=== PATIENT | male | born 1985 | race Caucasian/White ===

== ENCOUNTER 2023-02-02 08:24 | Inpatient (IN) | payer MEDICARE, BC ==
[2023-02-02] MEDS ORDERED: Ondansetron 4 MG Tab.DIS PO PRN (13:27)
[2023-02-02] MEDS ORDERED: Acetaminophen 325 MG Tab PO PRN (13:27)
[2023-02-02] MEDS ORDERED: Meropenem 500 MG in Sodium Chloride 0.9% 100 ML IV SCH (13:45)
[2023-02-02] MEDS ORDERED: ESZOPICLONE 3 MG PO PRN (14:01)
[2023-02-02] MEDS ORDERED: LORazepam 0.5 MG Tab PO PRN (14:01)
[2023-02-02] MEDS ORDERED: Loperamide 2 MG Cap PO PRN (14:01)
[2023-02-02] MEDS: Meropenem 500 MG SDV IVPUSH SCH ×2 (15:05→21:00)
[2023-02-02] MEDS: Sodium Chloride 0.9% 10 ML Syringe IV PRN ×4 (15:10→21:05)
[2023-02-02] MEDS: Psyllium Husk Powder Sugar Free 5.85 GM Packet PO SCH ×2 (17:55→21:12)
[2023-02-02] MEDS: VANCOmycin 2 GM/400 ML 2 GM in Premix Bag 1 BAG IV SCH (17:57)
[2023-02-02] MEDS: Atropine/Diphenoxylate 0.025-2.5 MG Tab PO SCH ×2 (18:05→21:21)
[2023-02-02] MEDS: cloNIDine 0.1 MG Tab PO SCH (21:07)
[2023-02-02] MEDS: Cyclobenzaprine 10 MG Tab PO SCH (21:10)
[2023-02-02] MEDS: Tamsulosin 0.4 MG Cap.ER PO SCH (21:11)
[2023-02-02] MEDS: lamoTRIgine 100 MG Tab PO SCH (21:12)
[2023-02-02] MEDS: Topiramate 50 MG Tab PO SCH (21:13)
[2023-02-03] MEDS: VANCOmycin 2 GM/400 ML 2 GM in Premix Bag 1 BAG IV SCH ×2 (01:08→08:31)
[2023-02-03] MEDS: Sodium Chloride 0.9% 10 ML Syringe IV PRN ×3 (03:15→08:19)
[2023-02-03] MEDS: Meropenem 500 MG SDV IVPUSH SCH ×4 (03:15→21:11)
[2023-02-03] MEDS: Enoxaparin 40 MG/0.4 ML Syringe SUBCUT SCH (08:18)
[2023-02-03] MEDS: Venlafaxine 150 MG Cap.ER PO SCH (08:21)
[2023-02-03] MEDS: AMPHETAMINE PO SCH (08:21)
[2023-02-03] MEDS: DEXTROAMPHETAMINE PO SCH (08:21)
[2023-02-03] MEDS: Venlafaxine 37.5 MG Cap.ER PO SCH (08:23)
[2023-02-03] MEDS: Cyclobenzaprine 10 MG Tab PO SCH ×3 (08:23→21:14)
[2023-02-03] MEDS: Nicotine 21 MG/24 Hr Patch TOP SCH (08:24)
[2023-02-03] MEDS: amLODIPine 10 MG Tab PO SCH (08:24)
[2023-02-03] MEDS: cloNIDine 0.1 MG Tab PO SCH ×2 (08:25→21:15)
[2023-02-03] MEDS: Psyllium Husk Powder Sugar Free 5.85 GM Packet PO SCH ×4 (08:34→21:22)
[2023-02-03] MEDS: Atropine/Diphenoxylate 0.025-2.5 MG Tab PO SCH ×4 (08:40→21:37)
[2023-02-03] MEDS: Nicotine Polacrilex 2 MG Gum BUCCAL PRN ×2 (10:15→16:14)
[2023-02-03] MEDS: [UNRECOGNIZED DRUG - OTHER] PO SCH ×3 (13:47→21:23)
[2023-02-03] MEDS: VANCOmycin 1.5 GM/300 ML 300 ML IV SCH (17:39)
[2023-02-03] MEDS: lamoTRIgine 100 MG Tab PO SCH (21:20)
[2023-02-03] MEDS: Tamsulosin 0.4 MG Cap.ER PO SCH (21:20)
[2023-02-03] MEDS: Topiramate 50 MG Tab PO SCH (21:21)
[2023-02-04] MEDS: VANCOmycin 1.5 GM/300 ML 300 ML IV SCH ×3 (02:37→18:57)
[2023-02-04] MEDS: Sodium Chloride 0.9% 10 ML Syringe IV PRN ×7 (04:31→14:23)
[2023-02-04] MEDS: Meropenem 500 MG SDV IVPUSH SCH ×4 (04:32→20:11)
[2023-02-04] MEDS: Enoxaparin 40 MG/0.4 ML Syringe SUBCUT SCH (08:39)
[2023-02-04] MEDS: cloNIDine 0.1 MG Tab PO SCH ×2 (08:46→20:13)
[2023-02-04] MEDS: Venlafaxine 150 MG Cap.ER PO SCH (08:52)
[2023-02-04] MEDS: Cyclobenzaprine 10 MG Tab PO SCH ×3 (08:52→20:13)
[2023-02-04] MEDS: Venlafaxine 37.5 MG Cap.ER PO SCH (08:52)
[2023-02-04] MEDS: amLODIPine 10 MG Tab PO SCH (08:53)
[2023-02-04] MEDS: Nicotine 21 MG/24 Hr Patch TOP SCH (08:54)
[2023-02-04] MEDS: Psyllium Husk Powder Sugar Free 5.85 GM Packet PO SCH ×2 (08:54→13:26)
[2023-02-04] MEDS: DEXTROAMPHETAMINE PO SCH (09:00)
[2023-02-04] MEDS: AMPHETAMINE PO SCH (09:00)
[2023-02-04] MEDS: [UNRECOGNIZED DRUG - OTHER] PO SCH ×4 (09:03→20:12)
[2023-02-04] MEDS: Atropine/Diphenoxylate 0.025-2.5 MG Tab PO SCH ×4 (09:31→20:12)
[2023-02-04] MEDS: Nicotine Polacrilex 2 MG Gum BUCCAL PRN ×2 (10:11→20:12)
[2023-02-04] MEDS: PSYLLIUM PO SCH ×2 (17:16→20:11)
[2023-02-04] MEDS: Topiramate 50 MG Tab PO SCH (20:13)
[2023-02-04] MEDS: Tamsulosin 0.4 MG Cap.ER PO SCH (20:13)
[2023-02-04] MEDS: lamoTRIgine 100 MG Tab PO SCH (21:46)
[2023-02-05] MEDS: Melatonin 3 MG Tab PO PRN ×2 (00:26→20:12)
[2023-02-05] MEDS: VANCOmycin 1.5 GM/300 ML 300 ML IV SCH ×3 (01:00→18:07)
[2023-02-05] MEDS: Meropenem 500 MG SDV IVPUSH SCH ×4 (02:54→20:03)
[2023-02-05] MEDS: Enoxaparin 40 MG/0.4 ML Syringe SUBCUT SCH (08:52)
[2023-02-05] MEDS: cloNIDine 0.1 MG Tab PO SCH ×2 (08:55→20:12)
[2023-02-05] MEDS: DEXTROAMPHETAMINE PO SCH (08:55)
[2023-02-05] MEDS: AMPHETAMINE PO SCH (08:55)
[2023-02-05] MEDS: Venlafaxine 37.5 MG Cap.ER PO SCH (08:56)
[2023-02-05] MEDS: Cyclobenzaprine 10 MG Tab PO SCH ×3 (08:56→20:14)
[2023-02-05] MEDS: Venlafaxine 150 MG Cap.ER PO SCH (08:56)
[2023-02-05] MEDS: Nicotine 21 MG/24 Hr Patch TOP SCH (08:57)
[2023-02-05] MEDS: Atropine/Diphenoxylate 0.025-2.5 MG Tab PO SCH ×4 (08:58→19:49)
[2023-02-05] MEDS: amLODIPine 10 MG Tab PO SCH (08:58)
[2023-02-05] MEDS: PSYLLIUM PO SCH ×4 (08:58→20:11)
[2023-02-05] MEDS: [UNRECOGNIZED DRUG - OTHER] PO SCH ×4 (08:59→20:05)
[2023-02-05] MEDS: Nicotine Polacrilex 2 MG Gum BUCCAL PRN ×3 (08:59→20:05)
[2023-02-05 10:56] LABS: CREATININE 0.9 mg/dL (0.70-1.30); EST CRCL DRUG DOSING (CG) 124.54 mL/min
[2023-02-05] MEDS: Sodium Chloride 0.9% 10 ML Syringe IV PRN ×3 (15:37→20:05)
[2023-02-05] MEDS: Tamsulosin 0.4 MG Cap.ER PO SCH (20:12)
[2023-02-05] MEDS: lamoTRIgine 100 MG Tab PO SCH (20:13)
[2023-02-05] MEDS: Topiramate 50 MG Tab PO SCH (20:14)
[2023-02-06] MEDS: VANCOmycin 1.5 GM/300 ML 300 ML IV SCH ×3 (01:23→17:55)
[2023-02-06] MEDS: Meropenem 500 MG SDV IVPUSH SCH ×4 (03:33→20:03)
[2023-02-06] MEDS: Enoxaparin 40 MG/0.4 ML Syringe SUBCUT SCH (08:57)
[2023-02-06] MEDS: Sodium Chloride 0.9% 10 ML Syringe IV PRN ×8 (08:58→20:03)
[2023-02-06] MEDS: Nicotine 21 MG/24 Hr Patch TOP SCH (09:00)
[2023-02-06] MEDS: cloNIDine 0.1 MG Tab PO SCH ×2 (09:02→21:05)
[2023-02-06] MEDS: Venlafaxine 37.5 MG Cap.ER PO SCH (09:02)
[2023-02-06] MEDS: amLODIPine 10 MG Tab PO SCH (09:03)
[2023-02-06] MEDS: Venlafaxine 150 MG Cap.ER PO SCH (09:03)
[2023-02-06] MEDS: Cyclobenzaprine 10 MG Tab PO SCH ×3 (09:05→21:09)
[2023-02-06] MEDS: PSYLLIUM PO SCH ×4 (09:08→21:10)
[2023-02-06] MEDS: AMPHETAMINE PO SCH (09:11)
[2023-02-06] MEDS: DEXTROAMPHETAMINE PO SCH (09:11)
[2023-02-06] MEDS: [UNRECOGNIZED DRUG - OTHER] PO SCH ×4 (09:12→21:18)
[2023-02-06] MEDS: Atropine/Diphenoxylate 0.025-2.5 MG Tab PO SCH ×4 (09:33→21:27)
[2023-02-06] MEDS: Tamsulosin 0.4 MG Cap.ER PO SCH (21:10)
[2023-02-06] MEDS: lamoTRIgine 100 MG Tab PO SCH (21:10)
[2023-02-06] MEDS: Topiramate 50 MG Tab PO SCH (21:11)
[2023-02-06] MEDS: Nicotine Polacrilex 2 MG Gum BUCCAL PRN (21:26)
[2023-02-07] MEDS: Sodium Chloride 0.9% 10 ML Syringe IV PRN ×10 (02:24→20:47)
[2023-02-07] MEDS: VANCOmycin 1.5 GM/300 ML 300 ML IV SCH ×3 (02:25→17:34)
[2023-02-07] MEDS: Meropenem 500 MG SDV IVPUSH SCH ×4 (03:59→20:49)
[2023-02-07] MEDS: Enoxaparin 40 MG/0.4 ML Syringe SUBCUT SCH (09:02)
[2023-02-07] MEDS: PSYLLIUM PO SCH ×4 (09:03→20:45)
[2023-02-07] MEDS: Atropine/Diphenoxylate 0.025-2.5 MG Tab PO SCH ×4 (09:04→20:58)
[2023-02-07] MEDS: Cyclobenzaprine 10 MG Tab PO SCH ×3 (09:04→21:00)
[2023-02-07] MEDS: Venlafaxine 150 MG Cap.ER PO SCH (09:05)
[2023-02-07] MEDS: amLODIPine 10 MG Tab PO SCH (09:05)
[2023-02-07] MEDS: Venlafaxine 37.5 MG Cap.ER PO SCH (09:05)
[2023-02-07] MEDS: Nicotine 21 MG/24 Hr Patch TOP SCH (09:06)
[2023-02-07] MEDS: cloNIDine 0.1 MG Tab PO SCH ×2 (09:06→20:58)
[2023-02-07] MEDS: DEXTROAMPHETAMINE PO SCH (09:10)
[2023-02-07] MEDS: [UNRECOGNIZED DRUG - OTHER] PO SCH ×4 (09:10→21:03)
[2023-02-07] MEDS: AMPHETAMINE PO SCH (09:10)
[2023-02-07] MEDS: Nicotine Polacrilex 2 MG Gum BUCCAL PRN (10:22)
[2023-02-07] MEDS: Tamsulosin 0.4 MG Cap.ER PO SCH (21:01)
[2023-02-07] MEDS: lamoTRIgine 100 MG Tab PO SCH (21:01)
[2023-02-07] MEDS: Topiramate 50 MG Tab PO SCH (21:01)
[2023-02-08] MEDS: Sodium Chloride 0.9% 10 ML Syringe IV PRN ×10 (01:53→20:41)
[2023-02-08] MEDS: Meropenem 500 MG SDV IVPUSH SCH ×4 (01:54→20:42)
[2023-02-08] MEDS: VANCOmycin 1.5 GM/300 ML 300 ML IV SCH ×3 (02:13→18:02)
[2023-02-08] MEDS: Atropine/Diphenoxylate 0.025-2.5 MG Tab PO SCH ×4 (08:44→21:11)
[2023-02-08] MEDS: PSYLLIUM PO SCH ×4 (08:44→20:37)
[2023-02-08] MEDS: Enoxaparin 40 MG/0.4 ML Syringe SUBCUT SCH (08:44)
[2023-02-08] MEDS: Venlafaxine 37.5 MG Cap.ER PO SCH (08:45)
[2023-02-08] MEDS: Venlafaxine 150 MG Cap.ER PO SCH (08:46)
[2023-02-08] MEDS: Cyclobenzaprine 10 MG Tab PO SCH ×3 (08:47→21:00)
[2023-02-08] MEDS: Nicotine 21 MG/24 Hr Patch TOP SCH (08:48)
[2023-02-08] MEDS: DEXTROAMPHETAMINE PO SCH (08:55)
[2023-02-08] MEDS: AMPHETAMINE PO SCH (08:55)
[2023-02-08] MEDS: [UNRECOGNIZED DRUG - OTHER] PO SCH ×4 (08:55→20:41)
[2023-02-08] MEDS: cloNIDine 0.1 MG Tab PO SCH ×2 (09:04→21:05)
[2023-02-08] MEDS: amLODIPine 10 MG Tab PO SCH (09:05)
[2023-02-08] MEDS: Nicotine Polacrilex 2 MG Gum BUCCAL PRN (20:36)
[2023-02-08] MEDS: Topiramate 50 MG Tab PO SCH (21:06)
[2023-02-08] MEDS: lamoTRIgine 100 MG Tab PO SCH (21:06)
[2023-02-08] MEDS: Tamsulosin 0.4 MG Cap.ER PO SCH (21:06)
[2023-02-09] MEDS: Sodium Chloride 0.9% 10 ML Syringe IV PRN ×7 (01:45→19:57)
[2023-02-09] MEDS: Meropenem 500 MG SDV IVPUSH SCH ×4 (01:45→19:52)
[2023-02-09] MEDS: VANCOmycin 1.5 GM/300 ML 300 ML IV SCH ×3 (01:52→17:25)
[2023-02-09] MEDS: Enoxaparin 40 MG/0.4 ML Syringe SUBCUT SCH (09:01)
[2023-02-09] MEDS: AMPHETAMINE PO SCH (09:04)
[2023-02-09] MEDS: DEXTROAMPHETAMINE PO SCH (09:04)
[2023-02-09] MEDS: Venlafaxine 37.5 MG Cap.ER PO SCH (09:05)
[2023-02-09] MEDS: Venlafaxine 150 MG Cap.ER PO SCH (09:05)
[2023-02-09] MEDS: Cyclobenzaprine 10 MG Tab PO SCH ×3 (09:06→21:31)
[2023-02-09] MEDS: Nicotine 21 MG/24 Hr Patch TOP SCH (09:07)
[2023-02-09] MEDS: Atropine/Diphenoxylate 0.025-2.5 MG Tab PO SCH ×4 (09:08→21:39)
[2023-02-09] MEDS: [UNRECOGNIZED DRUG - OTHER] PO SCH ×4 (09:09→21:40)
[2023-02-09] MEDS: PSYLLIUM PO SCH ×4 (09:10→21:31)
[2023-02-09] MEDS: cloNIDine 0.1 MG Tab PO SCH ×2 (09:11→21:34)
[2023-02-09] MEDS: amLODIPine 10 MG Tab PO SCH (09:12)
[2023-02-09 09:42] LABS: BASOPHILS PERCENT AUTO 0.8 % (0.3-3.8); EOSINOPHILS ABSOLUTE AUTO 0.2 x10-3/uL (0.0-0.6); EOSINOPHILS PERCENT AUTO 2.9 % (0.1-6.8); HEMOGLOBIN 12.5 g/dL (12.9-17.7); LYMPHOCYTES PERCENT AUTO 35.6 % (15.8-45.3); MEAN CORPUSCULAR HEMOGLOBIN 27.3 pg (27.0-33.3); MEAN CORPUSCULAR VOLUME 82.8 fL (80.8-98.7); MEAN PLATELET VOLUME 6.8 fL (6.7-11.0); MONOCYTES ABSOLUTE AUTO 0.4 x10-3/uL (0.0-1.2); MONOCYTES PERCENT AUTO 7.7 % (5.5-15.2); NEUTROPHILS ABSOLUTE AUTO 2.9 x10-3/uL (1.7-6.9); PLATELET COUNT,PLT 459 x10(3)uL (117-477); RED BLOOD CELL COUNT 4.59 x10(6)uL (3.90-5.90); RED CELL DISTRIBUTION WIDTH 14.5 % (12.4-15.0); WHITE BLOOD CELL COUNT,WBC 5.5 x10-3/uL (3.2-10.1)
[2023-02-09 09:50] LABS: CREATININE 0.7 mg/dL (0.70-1.30); EST CRCL DRUG DOSING (CG) 160.13 mL/min
[2023-02-09] MEDS: Topiramate 50 MG Tab PO SCH (21:30)
[2023-02-09] MEDS: lamoTRIgine 100 MG Tab PO SCH (21:30)
[2023-02-09] MEDS: Tamsulosin 0.4 MG Cap.ER PO SCH (21:31)
[2023-02-10] MEDS: Meropenem 500 MG SDV IVPUSH SCH ×4 (01:55→20:16)
[2023-02-10] MEDS: Sodium Chloride 0.9% 10 ML Syringe IV PRN ×9 (02:00→20:22)
[2023-02-10] MEDS: VANCOmycin 1.5 GM/300 ML 300 ML IV SCH ×3 (02:04→18:32)
[2023-02-10] MEDS: Enoxaparin 40 MG/0.4 ML Syringe SUBCUT SCH (08:33)
[2023-02-10] MEDS: AMPHETAMINE PO SCH (08:35)
[2023-02-10] MEDS: DEXTROAMPHETAMINE PO SCH (08:35)
[2023-02-10] MEDS: [UNRECOGNIZED DRUG - OTHER] PO SCH ×4 (08:37→21:18)
[2023-02-10] MEDS: cloNIDine 0.1 MG Tab PO SCH ×2 (08:40→21:14)
[2023-02-10] MEDS: amLODIPine 10 MG Tab PO SCH (08:40)
[2023-02-10] MEDS: Venlafaxine 150 MG Cap.ER PO SCH (08:41)
[2023-02-10] MEDS: Cyclobenzaprine 10 MG Tab PO SCH ×3 (08:43→21:14)
[2023-02-10] MEDS: Venlafaxine 37.5 MG Cap.ER PO SCH (08:44)
[2023-02-10] MEDS: Nicotine 21 MG/24 Hr Patch TOP SCH (08:45)
[2023-02-10] MEDS: PSYLLIUM PO SCH ×4 (08:48→21:15)
[2023-02-10] MEDS: Atropine/Diphenoxylate 0.025-2.5 MG Tab PO SCH ×4 (09:05→21:15)
[2023-02-10] MEDS: Topiramate 50 MG Tab PO SCH (21:15)
[2023-02-10] MEDS: Tamsulosin 0.4 MG Cap.ER PO SCH (21:15)
[2023-02-10] MEDS: lamoTRIgine 100 MG Tab PO SCH (21:15)
[2023-02-11] MEDS: Meropenem 500 MG SDV IVPUSH SCH ×4 (01:57→20:00)
[2023-02-11] MEDS: Sodium Chloride 0.9% 10 ML Syringe IV PRN ×8 (02:05→20:05)
[2023-02-11] MEDS: VANCOmycin 1.5 GM/300 ML 300 ML IV SCH ×3 (02:10→18:10)
[2023-02-11] MEDS: Enoxaparin 40 MG/0.4 ML Syringe SUBCUT SCH (09:20)
[2023-02-11] MEDS: DEXTROAMPHETAMINE PO SCH (09:28)
[2023-02-11] MEDS: Nicotine 21 MG/24 Hr Patch TOP SCH (09:28)
[2023-02-11] MEDS: AMPHETAMINE PO SCH (09:28)
[2023-02-11] MEDS: amLODIPine 10 MG Tab PO SCH (09:30)
[2023-02-11] MEDS: cloNIDine 0.1 MG Tab PO SCH ×2 (09:30→21:16)
[2023-02-11] MEDS: PSYLLIUM PO SCH ×4 (09:31→21:16)
[2023-02-11] MEDS: [UNRECOGNIZED DRUG - OTHER] PO SCH ×4 (09:32→21:16)
[2023-02-11] MEDS: Venlafaxine 37.5 MG Cap.ER PO SCH (09:33)
[2023-02-11] MEDS: Venlafaxine 150 MG Cap.ER PO SCH (09:33)
[2023-02-11] MEDS: Cyclobenzaprine 10 MG Tab PO SCH ×3 (09:34→21:15)
[2023-02-11] MEDS: Atropine/Diphenoxylate 0.025-2.5 MG Tab PO SCH ×4 (09:39→21:15)
[2023-02-11] MEDS: Topiramate 50 MG Tab PO SCH (21:15)
[2023-02-11] MEDS: lamoTRIgine 100 MG Tab PO SCH (21:15)
[2023-02-11] MEDS: Tamsulosin 0.4 MG Cap.ER PO SCH (21:15)
[2023-02-12] MEDS: Meropenem 500 MG SDV IVPUSH SCH ×4 (01:59→20:34)
[2023-02-12] MEDS: Sodium Chloride 0.9% 10 ML Syringe IV PRN ×9 (02:04→20:54)
[2023-02-12] MEDS: VANCOmycin 1.5 GM/300 ML 300 ML IV SCH ×3 (02:05→17:18)
[2023-02-12] MEDS: Enoxaparin 40 MG/0.4 ML Syringe SUBCUT SCH (09:24)
[2023-02-12] MEDS: PSYLLIUM PO SCH ×4 (09:26→20:42)
[2023-02-12] MEDS: [UNRECOGNIZED DRUG - OTHER] PO SCH ×4 (09:28→20:42)
[2023-02-12] MEDS ORDERED: Iopamidol 755 Mg/ML 100 ML Bottle IV ONE (09:30)
[2023-02-12] MEDS: AMPHETAMINE PO SCH (09:33)
[2023-02-12] MEDS: Atropine/Diphenoxylate 0.025-2.5 MG Tab PO SCH ×4 (09:33→20:42)
[2023-02-12] MEDS: DEXTROAMPHETAMINE PO SCH (09:33)
[2023-02-12] MEDS: Venlafaxine 37.5 MG Cap.ER PO SCH (09:34)
[2023-02-12] MEDS: Venlafaxine 150 MG Cap.ER PO SCH (09:34)
[2023-02-12] MEDS: Cyclobenzaprine 10 MG Tab PO SCH ×3 (09:35→20:35)
[2023-02-12] MEDS: Nicotine 21 MG/24 Hr Patch TOP SCH (09:39)
[2023-02-12] MEDS: cloNIDine 0.1 MG Tab PO SCH ×2 (09:50→20:34)
[2023-02-12] MEDS: amLODIPine 10 MG Tab PO SCH (09:50)
[2023-02-12] MEDS: lamoTRIgine 100 MG Tab PO SCH (20:35)
[2023-02-12] MEDS: Tamsulosin 0.4 MG Cap.ER PO SCH (20:35)
[2023-02-12] MEDS: Topiramate 50 MG Tab PO SCH (20:36)
[2023-02-13] MEDS: VANCOmycin 1.5 GM/300 ML 300 ML IV SCH ×3 (01:06→17:08)
[2023-02-13] MEDS: Sodium Chloride 0.9% 10 ML Syringe IV PRN ×11 (01:06→20:53)
[2023-02-13] MEDS: Meropenem 500 MG SDV IVPUSH SCH ×4 (02:45→20:48)
[2023-02-13] MEDS: AMPHETAMINE PO SCH (09:38)
[2023-02-13] MEDS: DEXTROAMPHETAMINE PO SCH (09:38)
[2023-02-13] MEDS: Enoxaparin 40 MG/0.4 ML Syringe SUBCUT SCH (09:49)
[2023-02-13] MEDS: Atropine/Diphenoxylate 0.025-2.5 MG Tab PO SCH ×4 (10:00→20:50)
[2023-02-13] MEDS: Cyclobenzaprine 10 MG Tab PO SCH ×3 (10:09→20:48)
[2023-02-13] MEDS: cloNIDine 0.1 MG Tab PO SCH ×2 (10:10→20:49)
[2023-02-13] MEDS: Venlafaxine 37.5 MG Cap.ER PO SCH (10:11)
[2023-02-13] MEDS: Venlafaxine 150 MG Cap.ER PO SCH (10:11)
[2023-02-13] MEDS: Nicotine 21 MG/24 Hr Patch TOP SCH (10:11)
[2023-02-13] MEDS: amLODIPine 10 MG Tab PO SCH (10:12)
[2023-02-13] MEDS: [UNRECOGNIZED DRUG - OTHER] PO SCH ×4 (10:13→20:46)
[2023-02-13] MEDS: PSYLLIUM PO SCH ×4 (10:17→20:50)
[2023-02-13] MEDS: lamoTRIgine 100 MG Tab PO SCH (20:48)
[2023-02-13] MEDS: Tamsulosin 0.4 MG Cap.ER PO SCH (20:49)
[2023-02-13] MEDS: Topiramate 50 MG Tab PO SCH (20:50)
[2023-02-14] MEDS: Meropenem 500 MG SDV IVPUSH SCH ×4 (02:42→20:50)
[2023-02-14] MEDS: VANCOmycin 1.5 GM/300 ML 300 ML IV SCH ×3 (02:47→18:18)
[2023-02-14] MEDS: Sodium Chloride 0.9% 10 ML Syringe IV PRN ×7 (02:47→20:55)
[2023-02-14] MEDS: Enoxaparin 40 MG/0.4 ML Syringe SUBCUT SCH (10:07)
[2023-02-14] MEDS: cloNIDine 0.1 MG Tab PO SCH ×2 (10:10→20:54)
[2023-02-14] MEDS: Venlafaxine 37.5 MG Cap.ER PO SCH (10:11)
[2023-02-14] MEDS: Venlafaxine 150 MG Cap.ER PO SCH (10:12)
[2023-02-14] MEDS: Cyclobenzaprine 10 MG Tab PO SCH ×3 (10:15→20:50)
[2023-02-14] MEDS: Nicotine 21 MG/24 Hr Patch TOP SCH (10:15)
[2023-02-14] MEDS: PSYLLIUM PO SCH ×4 (10:17→20:51)
[2023-02-14] MEDS: Atropine/Diphenoxylate 0.025-2.5 MG Tab PO SCH ×4 (10:17→20:52)
[2023-02-14] MEDS: amLODIPine 10 MG Tab PO SCH (10:18)
[2023-02-14] MEDS: [UNRECOGNIZED DRUG - OTHER] PO SCH ×4 (10:19→20:48)
[2023-02-14] MEDS: AMPHETAMINE PO SCH (10:24)
[2023-02-14] MEDS: DEXTROAMPHETAMINE PO SCH (10:24)
[2023-02-14] MEDS: Topiramate 50 MG Tab PO SCH (20:51)
[2023-02-14] MEDS: lamoTRIgine 100 MG Tab PO SCH (20:51)
[2023-02-14] MEDS: Tamsulosin 0.4 MG Cap.ER PO SCH (20:51)
[2023-02-15] MEDS: Meropenem 500 MG SDV IVPUSH SCH ×4 (02:28→20:49)
[2023-02-15] MEDS: VANCOmycin 1.5 GM/300 ML 300 ML IV SCH ×3 (02:32→17:45)
[2023-02-15] MEDS: Sodium Chloride 0.9% 10 ML Syringe IV PRN ×8 (02:32→20:54)
[2023-02-15] MEDS: Atropine/Diphenoxylate 0.025-2.5 MG Tab PO SCH ×4 (09:04→20:53)
[2023-02-15] MEDS: PSYLLIUM PO SCH ×4 (09:04→20:50)
[2023-02-15] MEDS: Enoxaparin 40 MG/0.4 ML Syringe SUBCUT SCH (09:05)
[2023-02-15] MEDS: Cyclobenzaprine 10 MG Tab PO SCH ×3 (09:08→20:49)
[2023-02-15] MEDS: Venlafaxine 37.5 MG Cap.ER PO SCH (09:08)
[2023-02-15] MEDS: Venlafaxine 150 MG Cap.ER PO SCH (09:08)
[2023-02-15] MEDS: cloNIDine 0.1 MG Tab PO SCH ×2 (09:08→20:51)
[2023-02-15] MEDS: Nicotine 21 MG/24 Hr Patch TOP SCH (09:09)
[2023-02-15] MEDS: amLODIPine 10 MG Tab PO SCH (09:10)
[2023-02-15] MEDS: [UNRECOGNIZED DRUG - OTHER] PO SCH ×4 (09:11→20:44)
[2023-02-15] MEDS: AMPHETAMINE PO SCH (09:18)
[2023-02-15] MEDS: DEXTROAMPHETAMINE PO SCH (09:18)
[2023-02-15] MEDS: Tamsulosin 0.4 MG Cap.ER PO SCH (20:49)
[2023-02-15] MEDS: lamoTRIgine 100 MG Tab PO SCH (20:49)
[2023-02-15] MEDS: Topiramate 50 MG Tab PO SCH (20:51)
[2023-02-16] MEDS: Meropenem 500 MG SDV IVPUSH SCH ×4 (02:33→21:38)
[2023-02-16] MEDS: Sodium Chloride 0.9% 10 ML Syringe IV PRN ×7 (02:36→21:37)
[2023-02-16] MEDS: VANCOmycin 1.5 GM/300 ML 300 ML IV SCH ×3 (02:36→18:00)
[2023-02-16] MEDS: Enoxaparin 40 MG/0.4 ML Syringe SUBCUT SCH (09:23)
[2023-02-16] MEDS: AMPHETAMINE PO SCH (09:24)
[2023-02-16] MEDS: DEXTROAMPHETAMINE PO SCH (09:24)
[2023-02-16] MEDS: Venlafaxine 150 MG Cap.ER PO SCH (09:25)
[2023-02-16] MEDS: Cyclobenzaprine 10 MG Tab PO SCH ×3 (09:25→21:57)
[2023-02-16] MEDS: Venlafaxine 37.5 MG Cap.ER PO SCH (09:25)
[2023-02-16] MEDS: Nicotine 21 MG/24 Hr Patch TOP SCH (09:26)
[2023-02-16] MEDS: PSYLLIUM PO SCH ×4 (09:27→21:54)
[2023-02-16] MEDS: Atropine/Diphenoxylate 0.025-2.5 MG Tab PO SCH ×4 (09:27→21:56)
[2023-02-16] MEDS: [UNRECOGNIZED DRUG - OTHER] PO SCH ×4 (09:28→21:55)
[2023-02-16] MEDS: cloNIDine 0.1 MG Tab PO SCH ×2 (09:32→21:56)
[2023-02-16] MEDS: amLODIPine 10 MG Tab PO SCH (09:32)
[2023-02-16] MEDS: lamoTRIgine 100 MG Tab PO SCH (21:56)
[2023-02-16] MEDS: Topiramate 50 MG Tab PO SCH (21:58)
[2023-02-16] MEDS: Tamsulosin 0.4 MG Cap.ER PO SCH (21:58)
[2023-02-17] MEDS: Meropenem 500 MG SDV IVPUSH SCH ×4 (01:55→20:25)
[2023-02-17] MEDS: Sodium Chloride 0.9% 10 ML Syringe IV PRN ×7 (01:55→20:24)
[2023-02-17] MEDS: VANCOmycin 1.5 GM/300 ML 300 ML IV SCH ×3 (02:07→17:52)
[2023-02-17] MEDS: Enoxaparin 40 MG/0.4 ML Syringe SUBCUT SCH (09:24)
[2023-02-17] MEDS: AMPHETAMINE PO SCH (09:43)
[2023-02-17] MEDS: DEXTROAMPHETAMINE PO SCH (09:43)
[2023-02-17] MEDS: cloNIDine 0.1 MG Tab PO SCH ×2 (09:44→20:38)
[2023-02-17] MEDS: Venlafaxine 37.5 MG Cap.ER PO SCH (09:44)
[2023-02-17] MEDS: Venlafaxine 150 MG Cap.ER PO SCH (09:45)
[2023-02-17] MEDS: Cyclobenzaprine 10 MG Tab PO SCH ×3 (09:46→20:38)
[2023-02-17] MEDS: Nicotine 21 MG/24 Hr Patch TOP SCH (09:47)
[2023-02-17] MEDS: [UNRECOGNIZED DRUG - OTHER] PO SCH ×4 (09:48→20:37)
[2023-02-17] MEDS: Atropine/Diphenoxylate 0.025-2.5 MG Tab PO SCH ×4 (09:50→20:38)
[2023-02-17] MEDS: PSYLLIUM PO SCH ×4 (09:52→20:36)
[2023-02-17] MEDS: amLODIPine 10 MG Tab PO SCH (09:53)
[2023-02-17 10:24] LABS: CREATININE 0.7 mg/dL (0.70-1.30); EST CRCL DRUG DOSING (CG) 160.13 mL/min
[2023-02-17 14:05] LABS: HEMATOCRIT 35.1 % (38.3-50.1); HEMOGLOBIN 11.6 g/dL (12.9-17.7); MEAN CORPUSCULAR HEMOGLOBIN 27.4 pg (27.0-33.3); MEAN CORPUSCULAR HGB CONC 33.1 g/dL (28.7-35.3); MEAN CORPUSCULAR VOLUME 82.8 fL (80.8-98.7); MEAN PLATELET VOLUME 7.1 fL (6.7-11.0); PLATELET COUNT,PLT 290 x10(3)uL (117-477); RED BLOOD CELL COUNT 4.24 x10(6)uL (3.90-5.90); WHITE BLOOD CELL COUNT,WBC 5.4 x10-3/uL (3.2-10.1)
[2023-02-17 14:06] LABS: BASOPHILS PERCENT AUTO 0.5 % (0.3-3.8); EOSINOPHILS ABSOLUTE AUTO 0.2 x10-3/uL (0.0-0.6); EOSINOPHILS PERCENT AUTO 4.4 % (0.1-6.8); LYMPHOCYTES ABSOLUTE AUTO 1.6 x10-3/uL (0.5-4.5); LYMPHOCYTES PERCENT AUTO 31.2 % (15.8-45.3); MONOCYTES ABSOLUTE AUTO 0.5 x10-3/uL (0.0-1.2); MONOCYTES PERCENT AUTO 9.7 % (5.5-15.2); NEUTROPHILS ABSOLUTE AUTO 2.8 x10-3/uL (1.7-6.9); NEUTROPHILS PERCENT AUTO 54.2 % (40.3-71.8)
[2023-02-17] MEDS: Topiramate 50 MG Tab PO SCH (20:39)
[2023-02-17] MEDS: Tamsulosin 0.4 MG Cap.ER PO SCH (20:39)
[2023-02-17] MEDS: lamoTRIgine 100 MG Tab PO SCH (20:40)
[2023-02-18] MEDS: Sodium Chloride 0.9% 10 ML Syringe IV PRN ×5 (02:06→13:25)
[2023-02-18] MEDS: Meropenem 500 MG SDV IVPUSH SCH ×3 (02:09→13:29)
[2023-02-18] MEDS: VANCOmycin 1.5 GM/300 ML 300 ML IV SCH ×3 (02:17→19:48)
[2023-02-18] MEDS: Enoxaparin 40 MG/0.4 ML Syringe SUBCUT SCH (08:24)
[2023-02-18] MEDS: cloNIDine 0.1 MG Tab PO SCH ×2 (08:29→21:18)
[2023-02-18] MEDS: Cyclobenzaprine 10 MG Tab PO SCH ×3 (08:30→21:18)
[2023-02-18] MEDS: Venlafaxine 37.5 MG Cap.ER PO SCH (08:30)
[2023-02-18] MEDS: Venlafaxine 150 MG Cap.ER PO SCH (08:30)
[2023-02-18] MEDS: Nicotine 21 MG/24 Hr Patch TOP SCH (08:31)
[2023-02-18] MEDS: Atropine/Diphenoxylate 0.025-2.5 MG Tab PO SCH ×4 (08:32→21:17)
[2023-02-18] MEDS: PSYLLIUM PO SCH ×4 (08:32→21:14)
[2023-02-18] MEDS: amLODIPine 10 MG Tab PO SCH (08:33)
[2023-02-18] MEDS: [UNRECOGNIZED DRUG - OTHER] PO SCH ×4 (08:34→21:17)
[2023-02-18] MEDS: DEXTROAMPHETAMINE PO SCH (09:26)
[2023-02-18] MEDS: AMPHETAMINE PO SCH (09:26)
[2023-02-18] MEDS: Tamsulosin 0.4 MG Cap.ER PO SCH (21:19)
[2023-02-18] MEDS: Topiramate 50 MG Tab PO SCH (21:19)
[2023-02-18] MEDS: lamoTRIgine 100 MG Tab PO SCH (21:19)
[2023-02-19] MEDS: Enoxaparin 40 MG/0.4 ML Syringe SUBCUT SCH (08:32)
[2023-02-19] MEDS: AMPHETAMINE PO SCH (08:33)
[2023-02-19] MEDS: Cyclobenzaprine 10 MG Tab PO SCH (08:33)
[2023-02-19] MEDS: DEXTROAMPHETAMINE PO SCH (08:33)
[2023-02-19] MEDS: cloNIDine 0.1 MG Tab PO SCH (08:34)
[2023-02-19] MEDS: Venlafaxine 37.5 MG Cap.ER PO SCH (08:38)
[2023-02-19] MEDS: Nicotine 21 MG/24 Hr Patch TOP SCH (08:38)
[2023-02-19] MEDS: Venlafaxine 150 MG Cap.ER PO SCH (08:38)
[2023-02-19] MEDS: PSYLLIUM PO SCH (08:39)
[2023-02-19] MEDS: amLODIPine 10 MG Tab PO SCH (08:39)
[2023-02-19] MEDS: [UNRECOGNIZED DRUG - OTHER] PO SCH (08:40)
[2023-02-19] MEDS: Atropine/Diphenoxylate 0.025-2.5 MG Tab PO SCH (08:46)
== END 2023-02-19 10:30 | disposition home health service (06) | DRG 690 ==
LOC: FB.MS 12:15
PROVIDERS: ADMIT Family Medicine; ATTEND Family Medicine
DX: N15.1 Renal and perinephric abscess (principal); K50.918 Crohn's disease, unspecified, with other complication; Z68.42 Body mass index [BMI] 45.0-49.9, adult; G40.909 Epilepsy, unspecified, not intractable, without status epilepticus; F39 Unspecified mood [affective] disorder; H54.7 Unspecified visual loss; F17.200 Nicotine dependence, unspecified, uncomplicated; E66.01 Morbid (severe) obesity due to excess calories; F41.1 Generalized anxiety disorder; F90.9 Attention-deficit hyperactivity disorder, unspecified type; G47.33 Obstructive sleep apnea (adult) (pediatric); N99.81 Other intraoperative complications of genitourinary system; Z90.49 Acquired absence of other specified parts of digestive tract; Z93.2 Ileostomy status; Z90.5 Acquired absence of kidney; Z79.899 Other long term (current) drug therapy; Z98.890 Other specified postprocedural states
CPT/HCPCS: 36415; 74177; 80202; 82565; 84460; 85025; 86140; 94760; A9270-GY; J1642; J1650; J2185; J3370; J3490; Q9967

== ENCOUNTER 2025-05-14 09:21 | Emergency (ER) | payer MEDICARE, BC ==
[2025-05-14] MEDS: Sodium Chloride 0.9% 10 ML Syringe FLUSH PRN (10:30)
[2025-05-14 10:39] LABS: MEAN PLATELET VOLUME 7.5 fL (6.7-11.0); PLATELET COUNT,PLT 408 x10(3)uL (117-477); RED BLOOD CELL COUNT 6.44 x10(6)uL (3.90-5.90); RED CELL DISTRIBUTION WIDTH 13.1 % (12.4-15.0); WHITE BLOOD CELL COUNT,WBC 6.3 x10-3/uL (3.2-10.1)
[2025-05-14 10:49] LABS: A/G RATIO 0.9; ALANINE AMINOTRANSFERASE,ALT 48 U/L (12-36); ASPARTATE AMNIOTRANSFERASE,AST 20 IU/L (5-25); BILIRUBIN TOTAL 0.8 mg/dL (0.1-1.3); BLOOD UREA NITROGEN,BUN 51 mg/dL (7-18); CARBON DIOXIDE,CO2 19 mmol/L (21-32); CHLORIDE,CL 97 mmol/L (100-110); EST CRCL DRUG DOSING (CG) 40.72 mL/min; ESTIMATED GFR 30 mL/min (>60); GLUCOSE RANDOM 121 mg/dL (80-116); POTASSIUM,K 4.5 mmol/L (3.5-5.3); PROTEIN TOTAL,TP 9.9 g/dL (6.0-8.0); SODIUM,NA 133 mmol/L (135-145)
[2025-05-14 10:56] LABS: CREATININE 2.7 mg/dL (0.70-1.30)
[2025-05-14 10:57] LABS: EOSINOPHILS PERCENT MAN 1 % (0-5); LYMPHOCYTES PERCENT MAN 24 % (13-37); MONOCYTES PERCENT MAN 18 % (4-12); SEG NEUTROPHILS PERCENT MAN 57 % (46-82)
[2025-05-14 11:15] LABS: GLUCOSE,URINE NORMAL (NORMAL); OCCULT BLOOD,URINE NEGATIVE (NEGATIVE)
[2025-05-14 11:18] LABS: APPEARANCE,URINE CLEAR (CLEAR); SQUAMOUS EPITHELIAL CELLS,UR MODERATE (NS,R,O)
[2025-05-14] MEDS: Iopamidol 755 Mg/ML 100 ML Bottle IV SCH (12:24)
== END 2025-05-14 14:50 ==
LOC: FB.ED 09:21
DX: K43.9 Ventral hernia without obstruction or gangrene (principal); N17.9 Acute kidney failure, unspecified; E86.0 Dehydration; F17.210 Nicotine dependence, cigarettes, uncomplicated; E78.00 Pure hypercholesterolemia, unspecified; I10 Essential (primary) hypertension; Z79.899 Other long term (current) drug therapy; R79.82 Elevated C-reactive protein (CRP)
CPT/HCPCS: 36415; 74177; 80053; 81001; 83605; 83615; 83690; 84145; 84484; 85025; 86140; 87086; 87428; 96360; 99285; J7030; Q9967